=== PATIENT | male | born 1965 | race Caucasian/White ===

== ENCOUNTER 2017-11-06 21:34 | Observation (INO) ==
[2017-11-07] MEDS ORDERED: Acetaminophen 500 MG Tablet PO PRN (02:30)
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
[2017-11-07] MEDS ORDERED: amLODIPine 10 MG Tablet PO SCH (11:00)
[2017-11-07] MEDS ORDERED: Aspirin 325 MG Tablet PO SCH (11:00)
--- NOTE | 2017-11-07 15:51 | NM ---
EXAM DATE: 11/07/2017 2:52 PM EDT AGE/SEX: 51 years / Male INDICATIONS: Angina. Chest pain on Digoxin Chest pain radiating to left shoulder. CLINICAL DATA: This is the patient's initial encounter. Patient reports that signs and symptoms have been present for 1 day and indicates a pain score of 4/10. MEDICAL/SURGICAL HISTORY: Hypertension. None. COMPARISON: No prior exams available for comparison. DOSE: 11 mCi Tc 99m Myoview at rest 35 mCi [id number] at stress REST HEART RATE: 77 BPM TARGET HEART RATE: 145 BPM MAX HEART RATE: 155 BPM REST BLOOD PRESSURE: 144/90 mmHg MAX BLOOD PRESSURE: 155/102 mmHg EJECTION FRACTION: 70 % TECHNIQUE: The patient underwent upright treadmill exercise in the chest pain center. Continuous EC G tracing was monitored during stress. Gated SPECT imaging was performed after stress, and conventio nal SPECT imaging was performed at rest. The examination was performed on a SPECT/CT scanner, both a ttenuation-corrected and non-corrected datasets were reviewed. FINDINGS: Distribution: The maximum perfused segment at stress is in the anterior wall. Perfusion: The pattern of perfusion at stress is within normal limits. There is a summed stress s core of 0. Gated Study: There are intact wall motion and wall thickening without hypokinetic or dyskinetic segme nts. The ejection fraction is calculated at 70%. RISK CATEGORY: Low (<1% Annual Motality Rate) CONCLUSION: 1. No fixed or reversible wall defect to suggest ischemia or infarction. 2. Normal wall motion and calculated ejection fraction. Electronically signed by: Nikolay Lisa MD 11/07/2017 3:50 PM EDT
[2017-11-07 16:25] VITALS: BP 127/88; PULSE 61; RESP 14; TEMP 98.7; O2SAT 96
--- NOTE | 2017-11-07 16:27 | TR ---
Date Performed: 11/07/2017 Time Performed: 13:37:03 DOCTOR: Julianne Sauceda DRUG LIST: CLINICAL HISTORY: REASON FOR TEST: REASON FOR ENDING: OBSERVATION: CONCLUSION: Horacio protocol completed. Stopped sec to exceeding target heart rate and leg fatigue . Total Exercise Time=7:31 Maximum XE=837 Max HR Achieved=90.0%. Maximum HK=252/102. No reprod ches t pain. Good exercise tolerance. Upsloping st segment. Hypertensive bp response. Recovery quick and unremarkable. No ectopy. Nuclear images pending. COMMENTS: No ischmemia
--- NOTE | 2017-11-07 23:42 | ECG ---
Date Performed: 11/07/2017 Time Performed: 04:08:30 PTAGE: 51 years EKG: Sinus rhythm POSSIBLE LEFT ATRIAL ENLARGEMENT POSSIBLE RIGHT VENTRICULAR CONDUCTION DELAY BORDERLINE ECG Since th e PREVIOUS TRACING , no significant change noted DOCTOR: Elian Orona Interpretating Date/Time 11/07/2017 23:40:52
== END 2017-11-07 17:47 | disposition home or self-care (01) ==
LOC: NEPGCP 21:34 → NEDDLT 21:34